=== PATIENT | female | born 1995 | race Caucasian/White ===

== ENCOUNTER 2025-06-09 20:24 | Emergency (ER) | payer OTHER ==
[~2025-06-09] VITALS: Ht 167.6 cm; Wt 72.6 kg
[2025-06-09 20:33] VITALS: BP 134/70; TEMP 98.1; O2SAT 98
== END 2025-06-09 20:57 | disposition home or self-care (01) ==
LOC: ER 20:27
DX: F15.90 Other stimulant use, unspecified, uncomplicated (principal); F41.1 Generalized anxiety disorder; F19.10 Other psychoactive substance abuse, uncomplicated; Z60.2 Problems related to living alone